=== PATIENT | female | born 1995 | race Caucasian/White ===

== ENCOUNTER 2017-01-01 02:17 | Emergency (ER) | payer SELFPAY ==
[~2017-01-01] VITALS: Ht 154.9 cm; Wt 66.0 kg
[2017-01-01] MEDS ORDERED: IBUPROFEN 400 MG TABLET PO ONE (02:45)
[2017-01-01 02:51] VITALS: BP 125/81
== END 2017-01-01 02:54 | disposition home or self-care (01) ==
LOC: EMS 02:18
DX: K14.8 Other diseases of tongue (principal)
CPT/HCPCS: 99281